=== PATIENT | male | born 1950 ===

== ENCOUNTER 2018-09-18 21:14 | Emergency (ER) | payer OTHER ==
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
[2018-09-19 00:54] VITALS: BP 127/70; PULSE 71; RESP 17; TEMP 98.1; O2SAT 97
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
== END 2018-09-19 00:57 | disposition home or self-care (01) ==
LOC: ED 21:14
DX: S13.4XXA Sprain of ligaments of cervical spine, initial encounter (principal); V49.59XA Passenger injured in collision with other motor vehicles in traffic accident, initial encounter; Y92.410 Unspecified street and highway as the place of occurrence of the external cause